=== PATIENT | male | born 1980 | race Caucasian/White ===

== ENCOUNTER 2023-09-07 12:45 | Outpatient (CLI) | payer OTHER ==
--- NOTE | 2023-09-07 13:33 | Sleep Patient Instructions ---
Sleep Center Visit Summary - Patient Visit Information Reason for Visit: Initial consult for evaluation of sleep disordered breathing and other sleep issues. - Patient Instructions Instructions Attached: Sleep Study Additional Instructions: You will be completing a sleep study, either an in-lab polysomnography (PSG) or home sleep study (HST). You will follow-up in the sleep care office after the sleep study is completed to hear the results and talk about therapy, if needed. You will be called by our office staff to schedule this appointment, but you may contact us with any questions. - Clinic Information Contact: [facility] [address] [place] [address] [email or web address] T: [phone]
--- NOTE | 2023-09-07 13:41 | SLEEP CARE CONSULTATION ---
Information from patient questionnaire entered by Anabella Caballero. I have reviewed and concur with the information entered by Anabella Caballero. This document represents the service I personally performed and the decisions made by me, Brunilda Guevara ARNP. History of Present Illness Service Date and Time: 09/07/2023 1245 Reason for Visit: New patient Chief Complaint: reports: Insomnia, Unrefreshed sleep, Snoring, Excessive daytime sleepiness, Observed pauses in breathing, Fatigue, Frequent awakenings at night Date of Onset: MULTIPLE YEARS Usual bedtime: 2129 Time it takes to fall asleep: 1-3HRS Snores at night: Yes Observed to quit breathing while asleep: Yes Sleeps alone due to snoring: Yes Number of times waking at night: 3-4 Reasons for waking at night: reports: Choking, Snoring, Pain, Bathroom, Other (UNKNOWN) Toss, Turn, or Twitch while sleeping: Yes Recalls having dreams: No Usually gets out of bed at: 0700 Feels refreshed in the morning: No Morning headache: Yes (2-3 times a week; takes Ibprofen ) Sleepy or fatigued during the day: Yes Ever fallen asleep while driving: No Takes day naps: Yes (mostly unintentional naps a couple times a month) Dreams during day naps: No Prior sleep studies: No Additional HPI information: I had the pleasure of seeing CANDIDO DICK today regarding the possibility of him having a sleep disorder. His current complaints are excessive daytime sleepiness, fatigue, frequent night awakenings, insomnia, observed pauses in breathing, snoring and unrefreshed sleep. He says his complains about his snoring and has witnessed him stopping breathing in his sleep. She is sleeping on couch because of his loud snoring. He says he lays down around 9:30 PM and it can take 1-3 hours to fall asleep. He will also wake up every night a few ti mes, he can fall asleep quickly sometimes but other times it can take up to 45 minutes to go back to sleep. He is retiring from the [employer] and is trying to get his health checks in. He also wants to reduce snoring to give his a better, more comfortable sleep in their bed. - Parasomnia Symptoms Ever been unable to move upon waking from sleep: No Walks in sleep: No Talks in sleep: No ( has never said he does) Ever acted out dreams in sleep: No Ever felt weak in the knees when startled or emotional: No Bothered by creepy, crawly, restless sensations in legs: Yes ("all the time", sometimes has to get up and move) Problems with memory or concentration: No Subjective Initial Warren Sleepiness Scale score: 15 (09/07/23) Past Medical History Past Medical History: reports: Arthritis, Anxiety, Impotence, Depression, Other (BILATERAL FOOT/SHOULDER PAIN, GASTROINTESTINAL ISSUES, HEARING LOSS, LOWER BACK PAIN) Social History The patient's occupation is a AM. Patient is and lives in . Have you smoked in the past 12 months: Yes Cigarettes per day (20/pack): 20 Years of smokin Smoking Pack Years: 21.0 Alcohol use: Yes Alcohol amount and frequency: 3-5 WEEKLY Caffeine use: Yes Caffeine amount and frequency: 3-4 CUPS COFFEE DAILY Family History Family history of sleep disordered breathing: Yes Family Hx Sleep Apnea: Father: Snoring Allergies and Home Medications Known drug allergies: No Drug allergies reviewed: Yes Home medication list reviewed: Yes (as listed) Allergy and home medication list: Allergies No Known Drug Allergies Allergy (Verified 09/07/23 12:57) Home Medications Fexofenadine HCl [Betty Hives] See Rx Instructions .ROUTE .COMPLEX 09/07/23 [History] Ibuprofen See Rx Instructions .ROUTE .COMPLEX 09/07/23 [History] PARoxetine HCL [Paroxetine Cr] See Rx Instructions .ROUTE .COMPLEX 09/07/23 [History] Propranolol HCl See Rx Instructions .ROUTE .COMPLEX 09/07/23 [History] Sertraline [Zoloft] See Rx Instructions .ROUTE .COMPLEX 09/07/23 [History] Tadalafil [Cialis] See Rx Instructions .ROUTE .COMPLEX 09/07/23 [History] hydrOXYzine HCL [Hydroxyzine HCl] See Rx Instructions .ROUTE .COMPLEX 09/07/23 [History] Review of Systems Weight gain over past 5 years: 25 Cardiovascular: denies: high blood pressure Gastrointestinal: reports: heartburn, abdominal pain Urinary: reports: impotence Neurological: reports: headaches, head trauma (last year, fall to tile on head; major head injury) Psychiatric: reports: anxiety, depression Ear/Nose/Throat: reports: sinus problems, nose bleeds, dry mouth/throat, wisdom teeth removed. denies: tonsillectomy Endocrine: reports: sluggishness, too hot or cold (TOO HOT) Musculoskeletal: reports: joint pain, back pain, joint swelling, muscle pain or cramping Immunologic: reports: sneezing, rash, itching, allergies to food or environment Physical Exam Vital signs obtained and entered by: ANABELLA Guajardo MA Blood Pressure: 150/86 (RIGHT ARM) Cuff size: regular Heart Rate: 82 O2 Saturation: 98 Height: 5 ft 10 in Weight: 199 lb 6.4 oz Body Mass Index: 28.5 BMI Classification: Overweight Neck circumference: 15.25 Mouth and throat: narrow oropharynx Soft palate: long Hard palate: normal Uvula: normal Uvula visualization: 50% Mallampati Class II Tongue: enlarged in size with teeth maya on lateral edges Tonsils: 1+ Neck: normal w/o lymphadenopathy or thyromegaly Heart: regular rate and rhythm Lungs: clear bilaterally Impression and Plan 1. Suspected Obstructive Sleep Apnea-Hypopnea Syndrome, as suggested by a history of loud and irregular snoring, observed cessation of breath while asleep, gasping or choking in sleep, frequent awakening during the night, unrefreshed sleep, and excessive daytime sleepiness. Narrow oropharynx and obesity are common predisposing factors for obstructive sleep apnea-hypopnea syndrome. I recommend proceeding to polysomnography to confirm the diagnosis and to assess severity. If the patient has significant sleep disordered breathing, a manual CPAP titration study will also be performed to find the optimal treatment pressure. I informed the patient of what the sleep studies involve and after some discussion, obtained agreement to proceed. The pathophysiology of obstructive sleep apnea-hypopnea syndrome was discussed with the patient and health risks of cardiovascular and cerebrovascular disease if not treated. Risks of drowsy driving discussed in detail and patient advised to avoid long distance driving and to sheeting puller at the first sign of drowsiness. Patient agreed to plan. * Schedule polysomnography * Avoid long distance driving or driving when feeling sleepy. * Avoid alcohol, sedative and muscle relaxant around bedtime. * Attempt to lose weight. * Review instructions provided by trained office staff on how to prepare for the sleep study. * Return for follow-up after sleep study completed. Counseling Topics: Weight loss health impact Plan: PSG and follow up Visit Type: In Office Time Spent with Patient (minutes): 32 Provider Statement: I spent 100% of the Face to Face Visit with the patient with greater than 50% spent counseling the patient and coordination of care.
[2023-09-07 13:43] VITALS: BP 150/86; O2SAT 98
== END 2023-09-07 12:46 | disposition home or self-care (01) ==
LOC: SC 12:45
PROVIDERS: ATTEND Nurse Practitioner Family
DX: R06.83 Snoring (principal); R06.81 Apnea, not elsewhere classified; G47.8 Other sleep disorders; G47.10 Hypersomnia, unspecified
CPT/HCPCS: 99203; 99212

== ENCOUNTER 2023-11-07 20:26 | Outpatient (CLI) | payer OTHER | END 2023-11-07 20:27 | disposition home or self-care (01) | LOC: SC 20:26 | PROVIDERS: ATTEND Nurse Practitioner Family | DX: G47.61 Periodic limb movement disorder (principal) | CPT/HCPCS: 95810 ==

== ENCOUNTER 2023-11-16 16:00 | Outpatient (CLI) | payer OTHER | END 2023-11-16 16:15 | disposition home or self-care (01) | LOC: LAB.N 16:00 | PROVIDERS: ATTEND Physician Assistant Medical | DX: H60.92 Unspecified otitis externa, left ear (principal) | CPT/HCPCS: 87070; 87181; 87205 ==